=== PATIENT | male | born 1990 | race Two or more races ===

== ENCOUNTER 2022-10-16 18:06 | Emergency (ER) | payer SELFPAY ==
[~2022-10-16] VITALS: Ht 172.7 cm; Wt 100.0 kg
[2022-10-16 18:06] VITALS: BP 114/71
== END 2022-10-16 19:15 | disposition home or self-care (01) ==
LOC: EDBD 18:06 → ER 18:10
DX: R07.89 Other chest pain (principal); V49.49XA Driver injured in collision with other motor vehicles in traffic accident, initial encounter; Y93.89 Activity, other specified; Y92.89 Other specified places as the place of occurrence of the external cause; Y99.8 Other external cause status